=== PATIENT | male | born 1940 | race Caucasian/White ===

== ENCOUNTER 2016-11-04 08:29 | Inpatient (IN) | payer OTHER ==
[~2016-11-04] VITALS: Ht 177.8 cm; Wt 141.3 kg
[~2016-11-04 08:29] MED LIST: ASPIR-LOW81 MG PO; ENALAPRIL MALEA20 MG PO; TYLENOL WITH C1 EACH PO
[2016-11-04 09:06] LABS: ADD MIUA? NO; BILIRUBIN NEGATIVE; BLOOD NEGATIVE; COLOR DK YELLOW ((YELLOW)); GLUCOSE (STRIP) NEGATIVE; KETONES NEGATIVE; LEUKOCYTES NEGATIVE; NITRITE NEGATIVE; PROTEIN (STRIP) 30; SPECIFIC GRAVITY 1.022 (1.000-1.030)
[2016-11-04 11:09] LABS: HEMATOCRIT 47.9 % (38.0-50.0); MCH 30.4 PG (29.0-34.0); MCHC 34.9 G/DL (30.0-36.0); MCV 87.1 FL (86-99); MEAN PLAT.VOLUME 11.1 uM^3 (9.0-12.4); PLATELET COUNT 231 K/uL (156-360); RBC DIS.WIDTH-CV 13.1 % (11.8-14.6); RBC DIS.WIDTH-SD 40.9 % (39-53)
[2016-11-04 11:12] LABS: EOSINOPHIL (%) 0.2 % (0-5); IMMATURE GRANULOCYTE (%) 0.3 % (0.0-0.7); IMMATURE GRANULOCYTE COUNT 0.6 K/uL; LYMPHOCYTE COUNT 1.2 K/uL (1.0-2.8); MONOCYTE (%) 12.7 % (3-12); MONOCYTE COUNT 2.3 K/uL (0-0.8); NEUTROPHIL (%) 80.2 % (45-76); NEUTROPHIL COUNT 14.5 K/uL (1.8-6.4); WHITE BLOOD COUNT 18.1 K/uL (4.1-10.2)
[2016-11-04 11:40] LABS: ANION GAP 10 MEQ/L (2-14); CHLORIDE 95 MEQ/L (99-109); SAMPLE HEMOLYSIS CHECK 0; SAMPLE ICTERIC CHECK 0; SAMPLE LIPEMIA CHECK 0; SODIUM 134 MEQ/L (136-147); TOTAL BILIRUBIN 1.9 MG/DL (0.0-1.0)
[2016-11-04 11:46] LABS: ALKALINE PHOSPHATASE 94 IU/L (3-129); GFR ESTIMATE (CALCULATED) 53 mL/min/; GLUCOSE 106 mg/dL (70-99); LIPASE 25 U/L (1.0-51.0); UREA NITROGEN (BUN) 19 mg/dL (9-23)
[2016-11-04] MEDS ORDERED: HYDROCHLOROTHIA25 MG PO (11:53)
[2016-11-04 14:26] LABS: SERUM ETHYL ALCOHOL < 10 mg/dL
[2016-11-04 14:47] LABS: D-DIMER ELISA 0.49 mg/L FEU (< 0.57)
[2016-11-04 15:10] LABS: INTER. NORMALIZED RATIO 1.2; PROTHROMBIN TIME 11.8 (9.2-11.2); PTT 33.9 (25-32)
[2016-11-04 15:36] LABS: TROP-I INTERPRETATION NEGATIVE; TROPONIN-I < 0.01 ng/mL (0.0-0.30)
[2016-11-04 17:00] LABS: HDL CHOLESTEROL 53 MG/DL (Desirable>=40); LDL CHOLESTEROL 102 mg/dL (Desirable<100); MAGNESIUM 1.9 mg/dl (1.3-2.7); NON-HDL CHOLESTEROL 111 mg/dL (Desirable<160); TOTAL CHOLESTEROL 164 mg/dL (Desirable<200); TRIGLYCERIDES 45 MG/DL (Normal: <150)
[2016-11-04 18:17] VITALS: BP 135/70
[2016-11-04 19:23] VITALS: BP 149/72
[2016-11-04 22:41] LABS: TROP-I INTERPRETATION NEGATIVE; TROPONIN-I 0.02 ng/mL (0.0-0.30)
[2016-11-04 23:37] VITALS: BP 132/61
[2016-11-05 04:11] VITALS: BP 127/76
[2016-11-05 06:59] LABS: EOSINOPHIL (%) 0.5 % (0-5); EOSINOPHIL COUNT 0.1 K/uL (0-0.3); HEMATOCRIT 44.5 % (38.0-50.0); IMMATURE GRANULOCYTE (%) 0.3 % (0.0-0.7); IMMATURE GRANULOCYTE COUNT 0.1 K/uL; LYMPHOCYTE COUNT 1.8 K/uL (1.0-2.8); MCH 29.5 PG (29.0-34.0); MCV 89.4 FL (86-99); MEAN PLAT.VOLUME 11.6 uM^3 (9.0-12.4); MONOCYTE (%) 12.5 % (3-12); NEUTROPHIL (%) 75.2 % (45-76); NEUTROPHIL COUNT 11.8 K/uL (1.8-6.4); PLATELET COUNT 190 K/uL (156-360); RBC DIS.WIDTH-CV 13.4 % (11.8-14.6); RBC DIS.WIDTH-SD 43.4 % (39-53); RED BLOOD COUNT 4.98 M/uL (4.00-5.50); WHITE BLOOD COUNT 15.7 K/uL (4.1-10.2)
[2016-11-05 07:20] LABS: ALKALINE PHOSPHATASE 86 IU/L (3-129); ANION GAP 11 MEQ/L (2-14); CHLORIDE 99 MEQ/L (99-109); GFR ESTIMATE (CALCULATED) 53 mL/min/; GLUCOSE 85 mg/dL (70-99); LIPASE 15 U/L (1.0-51.0); POTASSIUM 3.8 MEQ/L (3.7-5.4); SAMPLE HEMOLYSIS CHECK 0; SAMPLE ICTERIC CHECK 0; SAMPLE LIPEMIA CHECK 0; SODIUM 136 MEQ/L (136-147); TOTAL BILIRUBIN 1.6 MG/DL (0.0-1.0); UREA NITROGEN (BUN) 16 mg/dL (9-23)
[2016-11-05 07:23] VITALS: BP 142/67
[2016-11-05 11:16] VITALS: BP 144/74
[2016-11-05 15:50] VITALS: BP 159/70
[2016-11-05 19:10] VITALS: BP 152/73
[2016-11-05 19:46] LABS: EOSINOPHIL (%) 0.7 % (0-5); EOSINOPHIL COUNT 0.1 K/uL (0-0.3); HEMATOCRIT 43.8 % (38.0-50.0); IMMATURE GRANULOCYTE (%) 0.4 % (0.0-0.7); IMMATURE GRANULOCYTE COUNT 0.1 K/uL; LYMPHOCYTE COUNT 1.7 K/uL (1.0-2.8); MCH 30.4 PG (29.0-34.0); MCV 89.4 FL (86-99); MEAN PLAT.VOLUME 11.3 uM^3 (9.0-12.4); MONOCYTE (%) 8.9 % (3-12); MONOCYTE COUNT 1.2 K/uL (0-0.8); NEUTROPHIL (%) 77.4 % (45-76); NEUTROPHIL COUNT 10.4 K/uL (1.8-6.4); PLATELET COUNT 177 K/uL (156-360); RBC DIS.WIDTH-CV 13.2 % (11.8-14.6); RBC DIS.WIDTH-SD 42.8 % (39-53); WHITE BLOOD COUNT 13.4 K/uL (4.1-10.2)
[2016-11-05 20:23] LABS: ALKALINE PHOSPHATASE 78 IU/L (3-129); ANION GAP 9 MEQ/L (2-14); CHLORIDE 100 MEQ/L (99-109); GFR ESTIMATE (CALCULATED) > 59 mL/min/; POTASSIUM 3.6 MEQ/L (3.7-5.4); SAMPLE HEMOLYSIS CHECK 0; SAMPLE ICTERIC CHECK 0; SAMPLE LIPEMIA CHECK 0; SODIUM 136 MEQ/L (136-147); UREA NITROGEN (BUN) 15 mg/dL (9-23)
[2016-11-05 20:24] LABS: GLUCOSE 145 mg/dL (70-99); TOTAL BILIRUBIN 1.2 MG/DL (0.0-1.0)
[2016-11-06 00:30] VITALS: BP 142/74
[2016-11-06 04:00] VITALS: BP 121/59
[2016-11-06 06:41] LABS: HEMATOCRIT 43.4 % (38.0-50.0); MCH 30.9 PG (29.0-34.0); MCHC 34.6 G/DL (30.0-36.0); MCV 89.5 FL (86-99); MEAN PLAT.VOLUME 11.5 uM^3 (9.0-12.4); PLATELET COUNT 207 K/uL (156-360); RBC DIS.WIDTH-CV 13.1 % (11.8-14.6); RBC DIS.WIDTH-SD 42.7 % (39-53); RED BLOOD COUNT 4.85 M/uL (4.00-5.50); WHITE BLOOD COUNT 10.9 K/uL (4.1-10.2)
[2016-11-06 08:10] VITALS: BP 136/64
[2016-11-06 08:18] LABS: ANION GAP 10 MEQ/L (2-14); CHLORIDE 102 MEQ/L (99-109); GFR ESTIMATE (CALCULATED) 57 mL/min/; POTASSIUM 3.7 MEQ/L (3.7-5.4); SAMPLE HEMOLYSIS CHECK 0; SAMPLE ICTERIC CHECK 0; SAMPLE LIPEMIA CHECK 0; SODIUM 138 MEQ/L (136-147); UREA NITROGEN (BUN) 12 mg/dL (9-23)
[2016-11-06 08:21] LABS: GLUCOSE 94 mg/dL (70-99)
[2016-11-06 09:04] LABS: ALKALINE PHOSPHATASE 85 IU/L (3-129); LIPASE 11 U/L (1.0-51.0); TOTAL BILIRUBIN 1.2 MG/DL (0.0-1.0)
[2016-11-06 11:29] VITALS: BP 133/64
[2016-11-06] MEDS ORDERED: TAMSULOSIN HCL0.4 MG PO (15:10)
[2016-11-06] MEDS ORDERED: CARDIZEM CD,CA240 MG PO (15:11)
[2016-11-06] MEDS ORDERED: ELIQUIS5 MG PO (15:22)
[2016-11-06 15:25] VITALS: BP 146/69
== END 2016-11-06 18:24 | disposition home or self-care (01) | DRG 439 ==
LOC: EXP 08:29 → EME 08:29 → EDOF 13:47 → 4EAST 13:47 → EDOF 14:13 → 4EAST 17:21
PROVIDERS: Internal Medicine; Physician Assistant
DX: K85.10 Biliary acute pancreatitis without necrosis or infection (principal); K80.50 Calculus of bile duct without cholangitis or cholecystitis without obstruction; N17.9 Acute kidney failure, unspecified; E86.0 Dehydration; I48.91 Unspecified atrial fibrillation; E66.01 Morbid (severe) obesity due to excess calories; Z68.41 Body mass index [BMI] 40.0-44.9, adult; I10 Essential (primary) hypertension
CPT/HCPCS: 71020; 74176; 74181; 76705; 80048; 80053; 80061; 81003; 83690; 83735; 83880; 84443; 84484; 85025; 85025 91; 85027; 85379; 85610; 85730; 93005; 93306; 99281; 99285; G0480; J1160; J2270; J7030

== ENCOUNTER 2017-04-26 14:03 | Inpatient (IN) | payer OTHER ==
[~2017-04-26] VITALS: Ht 177.8 cm; Wt 133.4 kg
[~2017-04-26 14:03] MED LIST changes: +CARDIZEM CD,CA240 MG PO; +ELIQUIS5 MG PO; +HYDROCHLOROTHIA25 MG PO; +TAMSULOSIN HCL0.4 MG PO
[2017-04-26 15:32] LABS: ADD MIUA? NO; BILIRUBIN NEGATIVE; BLOOD NEGATIVE; COLOR YELLOW ((YELLOW)); GLUCOSE (STRIP) NEGATIVE; KETONES NEGATIVE; LEUKOCYTES NEGATIVE; NITRITE NEGATIVE; PROTEIN (STRIP) NEGATIVE; SPECIFIC GRAVITY 1.008 (1.000-1.030); UCUL ADDED? NO; UROBILINOGEN 0.2 MG/DL (0.2-1.0)
[2017-04-26 15:39] LABS: HEMATOCRIT 52.7 % (38.0-50.0); MCH 30.2 PG (29.0-34.0); RBC DIS.WIDTH-CV 13.1 % (11.8-14.6); RBC DIS.WIDTH-SD 42.9 % (39-53); RED BLOOD COUNT 5.92 M/uL (4.00-5.50); WHITE BLOOD COUNT 18.2 K/uL (4.1-10.2)
[2017-04-26 15:49] LABS: CHLORIDE 103 mEq/L (99-109); POTASSIUM 4.1 mEq/L (3.7-5.4); SODIUM 137 mEq/L (136-147)
[2017-04-26 15:52] LABS: GLUCOSE 107 mg/dL (70-99)
[2017-04-26 15:53] LABS: ANION GAP 8 MEQ/L (2-14)
[2017-04-26 15:54] LABS: TOTAL BILIRUBIN 1.8 mg/dL (0.0-1.0)
[2017-04-26 15:55] LABS: ALKALINE PHOSPHATASE 101 IU/L (3-129); GFR ESTIMATE (CALCULATED) 53 mL/min/
[2017-04-26 15:56] LABS: UREA NITROGEN (BUN) 13 mg/dL (9-23)
[2017-04-26 15:59] LABS: LIPASE 6 U/L (1.0-51.0)
[2017-04-26 16:17] LABS: MEAN PLAT.VOLUME 10.7 uM^3 (9.0-12.4); PLAT.SUFFICIENCY ADEQUATE; PLATELET COUNT 223 K/uL (156-360)
[2017-04-26] MEDS ORDERED: ENALAPRIL MALEA20 MG PO (17:53)
[2017-04-26] MEDS ORDERED: LO-DOSE ASPIRIN81 M2 PO (17:53)
[2017-04-26 21:36] VITALS: BP 172/87
[2017-04-27] VITALS (8 sets, daily range): BP systolic 123–185; BP diastolic 70–97
[2017-04-27 07:19] LABS: HEMATOCRIT 47.2 % (38.0-50.0); MCH 30.9 PG (29.0-34.0); MCHC 34.1 G/DL (30.0-36.0); MCV 90.6 FL (86-99); MEAN PLAT.VOLUME 11.1 uM^3 (9.0-12.4); PLATELET COUNT 178 K/uL (156-360); RBC DIS.WIDTH-CV 13.5 % (11.8-14.6); RBC DIS.WIDTH-SD 45.6 % (39-53); RED BLOOD COUNT 5.21 M/uL (4.00-5.50); WHITE BLOOD COUNT 15.9 K/uL (4.1-10.2)
[2017-04-27 07:37] LABS: ANION GAP 7 MEQ/L (2-14); CHLORIDE 107 MEQ/L (99-109); POTASSIUM 4.4 MEQ/L (3.7-5.4); SAMPLE HEMOLYSIS CHECK 0; SAMPLE ICTERIC CHECK 0; SAMPLE LIPEMIA CHECK 0; SODIUM 138 MEQ/L (136-147); TOTAL BILIRUBIN 0.8 MG/DL (0.0-1.0)
[2017-04-27 07:42] LABS: ALKALINE PHOSPHATASE 92 IU/L (3-129); GFR ESTIMATE (CALCULATED) 57 mL/min/; GLUCOSE 148 mg/dL (70-99); LIPASE 5 U/L (1.0-51.0); UREA NITROGEN (BUN) 14 mg/dL (9-23)
[2017-04-28 04:39] VITALS: BP 147/72
[2017-04-28 06:38] LABS: MCH 30.1 PG (29.0-34.0); MCHC 33.3 G/DL (30.0-36.0); MCV 90.4 FL (86-99); MEAN PLAT.VOLUME 11.4 uM^3 (9.0-12.4); PLATELET COUNT 185 K/uL (156-360); RBC DIS.WIDTH-CV 13.6 % (11.8-14.6); RBC DIS.WIDTH-SD 45.7 % (39-53); RED BLOOD COUNT 4.98 M/uL (4.00-5.50); WHITE BLOOD COUNT 12.8 K/uL (4.1-10.2)
[2017-04-28 08:06] VITALS: BP 155/85
[2017-04-28 15:52] VITALS: BP 160/78
[2017-04-28 19:55] VITALS: BP 129/75
[2017-04-29 00:01] VITALS: BP 153/74
[2017-04-29 03:19] VITALS: BP 164/82
[2017-04-29 08:27] VITALS: BP 172/85
[2017-04-29] MEDS ORDERED: NORCO 5/3251 TABLET PO (10:54)
== END 2017-04-29 15:57 | disposition home or self-care (01) | DRG 418 ==
LOC: EME 14:03 → SDC 18:36 → 3EAST 19:45 → 2SOUTH 19:45 → 3EAST 21:31
PROVIDERS: Anesthesiology; Physician Assistant Surgical; Surgery
PROC: 0FT44ZZ Resection of Gallbladder, Percutaneous Endoscopic Approach (ICD-10-PCS; principal; 2017-04-26)
PROC: 0DQ84ZZ Repair Small Intestine, Percutaneous Endoscopic Approach (ICD-10-PCS; principal; 2017-04-26)
DX: K80.00 Calculus of gallbladder with acute cholecystitis without obstruction (principal); K91.71 Accidental puncture and laceration of a digestive system organ or structure during a digestive system procedure; Y83.6 Removal of other organ (partial) (total) as the cause of abnormal reaction of the patient, or of later complication, without mention of misadventure at the time of the procedure; I10 Essential (primary) hypertension; I48.91 Unspecified atrial fibrillation; K21.9 Gastro-esophageal reflux disease without esophagitis; E66.01 Morbid (severe) obesity due to excess calories; Z79.82 Long term (current) use of aspirin; Z68.41 Body mass index [BMI] 40.0-44.9, adult
CPT/HCPCS: 76705; 80053; 81003; 83690; 85027; 88304; 93005; 94799; 99281; 99285; J0131; J0330; J1100; J1170; J1644; J2270; J2405; J2710; J3010; J7030; S0028